=== PATIENT | female | born 1970 | race Caucasian/White ===

== ENCOUNTER 2016-09-29 16:11 | Emergency (ER) | payer MEDICAID ==
--- NOTE | 2016-09-30 08:22 | ER ---
ADMIT: 09/29/2016 RM/LOC: ER [facility] MR#: [id number] [id number] [place] [address] Emergency Room Report SEX: F AGE: 46 : 1970 DATE: 09/29/2016 A 46-year-old, who comes to the Emergency Department with complaints of itchiness. She states she started taking naproxen, ate a tenderloin and developed this itchiness all over her body. She said she has a rash. See T- sheet for remainder of history and physical. I did not see any rash. There are areas of excoriations on her thighs and right forearm where she has been scratching, but I do not see hives. She was given hydroxyzine in the Emergency Department, and a prescription for some more, instructed to stop the naproxen, avoid tenderloin, and to follow up with her doctor as needed. Rj Rowell MD/ elena JOB #: [id number] CC: Rj Rowell MD, Attending Physician Melissa Sargent, Family Physician
== END 2016-09-29 17:15 | disposition home or self-care (01) ==
LOC: ER 16:11
DX: L29.9 Pruritus, unspecified (principal); F17.210 Nicotine dependence, cigarettes, uncomplicated; Z79.899 Other long term (current) drug therapy

== ENCOUNTER → 2016-10-02 | Outpatient (CLI) | payer MEDICAID | END | disposition home or self-care (01) | LOC: RAD.S 12:55 | DX: N63 Unspecified lump in breast (principal) ==